=== PATIENT | female | born 1985 | race Caucasian/White ===

== ENCOUNTER 2018-04-18 12:47 | Observation (INO) | payer MEDICAID, OTHER ==
[~2018-04-18] VITALS: Ht 162.6 cm; Wt 71.2 kg
== END 2018-04-18 13:45 | disposition home or self-care (01) ==
LOC: 8 EST LDRP 12:47
PROVIDERS: ADMIT Obstetrics & Gynecology; ATTEND Obstetrics & Gynecology
DX: O42.90 Premature rupture of membranes, unspecified as to length of time between rupture and onset of labor, unspecified weeks of gestation (principal); Z3A.00 Weeks of gestation of pregnancy not specified
CPT/HCPCS: 99281; G0378

== ENCOUNTER 2018-04-21 15:06 | Observation (INO) | payer OTHER | END 2018-04-21 16:20 | disposition home or self-care (01) | LOC: 8 EST LDRP 15:06 | PROVIDERS: ADMIT Obstetrics & Gynecology; ATTEND Obstetrics & Gynecology | DX: O26.893 Other specified pregnancy related conditions, third trimester (principal); N89.8 Other specified noninflammatory disorders of vagina; Z3A.39 39 weeks gestation of pregnancy | CPT/HCPCS: 99281; G0378 ==

== ENCOUNTER 2018-04-28 12:52 | Observation (INO) | payer OTHER | END 2018-04-28 13:55 | disposition home or self-care (01) | LOC: 8 EST LDRP 12:52 | PROVIDERS: ADMIT Specialist; ATTEND Specialist | DX: O42.92 Full-term premature rupture of membranes, unspecified as to length of time between rupture and onset of labor (principal); Z3A.38 38 weeks gestation of pregnancy | CPT/HCPCS: 99281; G0378 ==

== ENCOUNTER 2020-04-24 12:16 | Emergency (ER) | payer OTHER ==
[~2020-04-24] VITALS: Ht 167.6 cm; Wt 54.0 kg
[2020-04-24] MEDS ORDERED: ACET-2708 PO (13:11)
[2020-04-24] MEDS ORDERED: BO1 TP (13:11)
[2020-04-24] MEDS ORDERED: BACITRACIN ZINC OINT UDPKT TOP ONE (13:15)
[2020-04-24 13:34] VITALS: BP 115/74
== END 2020-04-24 15:11 | disposition home or self-care (01) ==
LOC: ER 12:16
DX: S01.112A Laceration without foreign body of left eyelid and periocular area, initial encounter (principal); X58.XXXA Exposure to other specified factors, initial encounter; Y93.89 Activity, other specified; Y92.89 Other specified places as the place of occurrence of the external cause; Y99.8 Other external cause status
CPT/HCPCS: 99283